=== PATIENT | female | born 1990 | race Caucasian/White ===

== ENCOUNTER 2016-06-10 08:29 | Emergency (ER) | payer OTHER | END 2016-06-10 09:05 | disposition home or self-care (01) | LOC: ER1 08:29 | DX: L02.01 Cutaneous abscess of face (principal); Z88.1 Allergy status to other antibiotic agents | CPT/HCPCS: 99282 ==

== ENCOUNTER 2016-06-12 08:25 | Emergency (ER) | payer OTHER | END 2016-06-12 09:16 | disposition home or self-care (01) | LOC: ER1 08:25 | DX: Z48.01 Encounter for change or removal of surgical wound dressing (principal); Z88.1 Allergy status to other antibiotic agents | CPT/HCPCS: 99282 ==

== ENCOUNTER 2020-11-16 08:08 | Emergency (ER) | payer OTHER ==
[~2020-11-16 08:08] MED LIST: ZOFRAN4 MG PO
== END 2020-11-16 10:04 | disposition home or self-care (01) ==
LOC: ER1 08:08
DX: J06.9 Acute upper respiratory infection, unspecified (principal); Z20.822 Contact with and (suspected) exposure to COVID-19
CPT/HCPCS: 0240U; 71045; 99283